=== PATIENT | female | born 1970 | race Caucasian/White ===

== ENCOUNTER 2022-05-22 08:33 | Day surgery (SDC) | payer OTHER ==
[2022-05-17 17:05] VITALS: BMI 24.1
[2022-05-22 09:27] VITALS: TEMP 97.4
[2022-05-22] MEDS ORDERED: ROPIVACAINE HCL/PF 100 MG/20 ML VIAL ONE (10:01)
[2022-05-22] MEDS ORDERED: MIDAZOLAM HCL 2 MG/2 ML SINGLE DOSE VIAL ONE (10:01)
[2022-05-22] MEDS ORDERED: DEXAMETHASONE SOD PHOSPHATE 10 MG/1 ML VIAL ONE (10:01)
[2022-05-22] MEDS ORDERED: BUPIVACAINE HCL/PF 2.5 MG/ML - 30 ML VIAL IJ ONE (10:04)
[2022-05-22] MEDS ORDERED: PROPOFOL 40 ML ONE (10:32)
[2022-05-22] MEDS ORDERED: KETOROLAC TROMETHAMINE 30 MG/1 ML VIAL ONE (10:36)
[2022-05-22] MEDS ORDERED: ONDANSETRON 4 MG/2 ML VIAL ONE (10:36)
[2022-05-22] MEDS ORDERED: DEXAMETHASONE SOD PHOSPHATE 4 MG/1 ML VIAL ONE (10:36)
[2022-05-22] MEDS ORDERED: ceFAZolin SODIUM 1 GM VIAL ONE (10:36)
[2022-05-22] MEDS ORDERED: GUM MASTIC/STORAX/MSAL/ALCOHOL 1 DRP DROPSBTL MC ONE (10:59)
[2022-05-22] MEDS ORDERED: ONDANSETRON 4 MG/2 ML VIAL IVPUSH PRN (11:40)
[2022-05-22] MEDS ORDERED: oxyCODONE HCL 5 MG TABLET PO PRN ×2 (11:40)
[2022-05-22 12:21] VITALS: RESP 16
[2022-05-22 12:30] VITALS: BP 128/64; PULSE 64
== END 2022-05-22 12:55 | disposition home or self-care (01) ==
LOC: FASU 08:33
PROVIDERS: ATTEND Orthopaedic Surgery Hand Surgery
PROC: 0RQU0ZZ Repair Right Metacarpophalangeal Joint, Open Approach (ICD-10-PCS; 2022-05-22)
PROC: 0LX70ZZ Transfer Right Hand Tendon, Open Approach (ICD-10-PCS; principal; 2022-05-22 10:43)
DX: M18.11 Unilateral primary osteoarthritis of first carpometacarpal joint, right hand (principal)
CPT/HCPCS: 25447; 26480; C1713; 84703; J1100